=== PATIENT | female | born 1985 | race Caucasian/White ===

== ENCOUNTER 2018-12-26 17:29 | Emergency (ER) | payer OTHER, SELFPAY ==
[2018-12-26 17:37] VITALS: BP 139/99; PULSE 86; RESP 18; TEMP 36.9; O2SAT 100
[2018-12-26 18:53] LABS: Influenza A and B by PCR Rapid Negative (Negative)
--- NOTE | 2018-12-26 19:00 | ED_ITS ---
HPI - URI/Sore Throat <LLOYD Strickland - Last Filed: 12/26/18 22:01> General Chief Complaint: Upper Respiratory Symptoms Stated Complaint: HEAD PAIN, SORE THROAT Time Seen by Provider: 12/26/18 17:42 Source: patient Mode of arrival: ambulatory Limitations: no limitations History of Present Illness HPI Narrative: 33-year-old female with history of hypertension and hypothyroidism that is a nonsmoker here for concern of having sore throat and nasal congestion and cold-like symptoms on and off for the past few weeks. She states that she has had a resurgence of her symptoms starting earlier this week. She had a fever 3 days ago however she has not had a fever since then. She has had nasal congestion sinus discomfort and generalized body aches over this timeframe. She reports that her children have had similar symptoms as well. Positive p.o. intake. She reports she has had greenish nasal discharge as well. MD Complaint: sore throat, rhinorrhea, nasal congestion and sinus pain Related Data Home Medications Medication Instructions Recorded Confirmed labetalol 100 mg PO BID #0 11/27/17 12/26/18 sertraline [Zoloft] 50 mg PO HS #0 11/27/17 12/26/18 levothyroxine [Synthroid] 75 mcg PO DAILY 12/26/18 12/26/18 lisinopril 10 mg PO DAILY 12/26/18 12/26/18 Previous Rx's Medication Instructions Recorded amoxicillin-pot clavulanate 1 tab PO BID #20 tab 12/26/18 Allergies Allergy/AdvReac Type Severity Reaction Status Date / Time From [facility] Allergy Unknown HIVES Uncoded 12/26/18 17:43 Review of Systems <LLOYD Strickland - Last Filed: 12/26/18 22:01> Constitutional Denies chills, Reports fever(s), Denies lethargy and Denies weakness Eyes Denies change in vision, Denies eye discharge, Denies irritation and Denies loss of vision ENT Ears, Nose, Mouth, and Throat: Reports nasal congestion, Reports nasal discha rge, Reports sinus pain, Reports sinus pressure, Reports sore throat and Denies throat swelling Cardiovascular Denies chest pain, Denies irregular heart rhythm, Denies lightheadedness, Denies palpitations and Denies orthopnea Respiratory Reports cough and Denies wheezing Gastrointestinal Gastrointestinal: Denies abdominal pain, Denies change in bowel habits, Denies diarrhea, Denies nausea and Denies vomiting Genitourinary Denies hematuria, Denies flank pain, Denies urinary incontinence and Denies urinary urgency Musculoskeletal Denies back pain, Denies muscle weakness, Denies numbness and Denies tingling Integumentary/Breasts Denies pruritus, Denies erythema, Denies rash and Denies wounds Neurologic Denies confusion, Denies loss of vision, Denies numbness, Denies tingling and Denies weakness Psychiatric Denies anxiety, Denies confusion, Denies depression, Denies homicidal ideation and Denies suicidal ideation Endocrine Denies palpitations Hematologic/Lymphatic Denies easy bruising Allergic/Immunologic Denies urticaria, Denies throat swelling and Denies wheezing PFSH <LLOYD Strickland - Last Filed: 12/26/18 22:01> Medical History Hypothyroidism (Acute) Anxiety (Acute) Pre-eclampsia (Acute) Social History Smoking Status: Never smoker Social History Smoking Status: Never smoker Exam <LLOYD Strickland - Last Filed: 12/26/18 22:01> Initial Vital Signs Initial Vital Signs: Vital Signs Temperature 98.5 F 12/26/18 17:37 Pulse Rate 86 12/26/18 17:37 Respiratory Rate 18 12/26/18 17:37 Blood Pressure 139/99 H 12/26/18 17:37 Pulse Oximetry 100 12/26/18 17:37 Const General: cooperative and well developed Nutritional Appearance: well nourished Orientation: alert, awake, oriented x3 and not confused HENMT Ears: hearing grossly normal bilaterally, external ears normal and TM's normal bilaterally Face and sinus: sinus tenderness maxillary Mouth: oral mucosae normal and moist mucous membranes Throat: posterior oropharynx abnormal erythema Eyes Conjunctivae: conjunctivae normal Sclera: sclerae normal Pupils: PERRL EOM: EOM intact bilaterally Neck Neck: normal visual inspection, trachea midline, No lymphadenopathy, No midline deformity and No JVD Lymphatic: No lymphedema Resp Effort & Inspection: normal respiratory effort, able to speak in complete sentences, no respiratory distress and no use of accessory muscles Auscultation: clear to auscultation bilaterally, no rales, no rhonchi and no wheezes Cardio Rate: regular rate Rhythm: regular rhythm Heart Sounds: no click, no gallops, no murmurs and no rubs Pulses: normal peripheral pulses Skin General: no rashes or lesions noted, No jaundice and No petechiae Neuro General: alert, oriented x3, gait normal and no focal motor deficits Speech: speech normal <DO Abdoul Ervin Last Filed: 12/27/18 01:45> Initial Vital Signs Initial Vital Signs: Vital Signs Temperature 98.5 F 12/26/18 17:37 Pulse Rate 86 12/26/18 17:37 Respiratory Rate 18 12/26/18 17:37 Blood Pressure 139/99 H 12/26/18 17:37 Pulse Oximetry 100 12/26/18 17:37 Course <LLOYD Strickland - Last Filed: 12/26/18 22:01> Orders Ordered: ED Orders 12/26/18 18:29 Influenza A and B by PCR Rapid Stat Vital Signs - 8 hr 12/26/18 17:37 Temperature 98.5 F Pulse Rate 86 Respiratory Rate 18 Blood Pressure 139/99 H Pulse Oximetry 100 <DO Abdoul Ervin Last Filed: 12/27/18 01:45> Orders Ordered: ED Orders 12/26/18 18:29 Influenza A and B by PCR Rapid Stat Vital Signs - 8 hr 12/26/18 17:37 Temperature 98.5 F Pulse Rate 86 Respiratory Rate 18 Blood Pressure 139/99 H Pulse Oximetry 100 MDM - URI/Sore Throat <LLOYD Strickland - Last Filed: 12/26/18 22:01> Lab Data Lab Results 12/26/18 Range/Units 18:29 Influenza A & B (PCR) Negative (Negative) Point of Care Testing Rapid Strep A Positive MDM Narrative Medical decision making narrative: Influenza swab was obtained and was negative. Strep test was obtained and was positive. Will treat for sinusitis and also for strep throat with Augmentin. Plenty of fluids. Bawe-[id number]-ohllygn ibuprofen or Tylenol as needed for any discomfort and fever. Follow up with primary care provider. Return emergency room for any worsening symptoms. Saline irrigation and nasal passages and hot showers to help with congestion. <DO Abdoul Ervin Last Filed: 12/27/18 01:45> Lab Data Lab Results 12/26/18 Range/Units 18:29 Influenza A & B (PCR) Negative (Negative) Point of Care Testing Rapid Strep A Positive Discharge Plan Departure Patient Disposition: Home Clinical Impression: Acute streptococcal pharyngitis Sinusitis Qualifiers: Sinusitis location: maxillary Chronicity: acute Recurrence: non-recurrent Qualified Code(s): J01.00 - Acute maxillary sinusitis, unspecified Discharge Date/Time: 12/26/18 20:13 Interventions: ED Discharge Assessment Last Done: 12/26/18 20:12 Instructions: DI for Strep Throat Activity Restrictions/Additional Instructions: Influenza swab was obtained and was negative. Strep test was obtained and was positive. UR prescribed an antibiotic called Augmentin use as directed. The antibiotic will covefor r sinusitis and also for strep throat. Plenty of fluids. [id number] ibuprofen or Tylenol as needed for any discomfort and fever. Follow up with primary care provider. Return emergency room for any worsening symptoms. Saline irrigation and nasal passages and hot showers to help with congestion. Prescriptions: New amoxicillin-pot clavulanate 875-125 mg tablet 1 tab PO BID Qty: 20 RF: 0 No Action labetalol 100 MG tablet 100 mg PO BID Qty: 0 RF: 0 sertraline [Zoloft] 50 MG tablet 50 mg PO HS Qty: 0 RF: 0 levothyroxine [Synthroid] 75 mcg Tablet 75 mcg PO DAILY RF: 0 lisinopril 10 mg Tablet 10 mg PO DAILY RF: 0 Referrals: [facility] [Provider Group] <Mecca York DO - Last Filed: 12/27/18 01:45> Cosign ED Attending Cosignature Attestation: I was immediately available in the department for consultation. Documentation has been reviewed. I agree with assessment and plan.
== END 2018-12-26 20:13 | disposition home or self-care (01) ==
PROVIDERS: Emergency Provider Nurse Practitioner Family
DX: J02.0 Streptococcal pharyngitis (principal)
CPT/HCPCS: 87400; 87880; 99282; 99283

== ENCOUNTER 2019-02-09 13:20 | Emergency (ER) | payer OTHER, SELFPAY ==
[2019-02-09 13:24] VITALS: BP 148/98; PULSE 68; RESP 20; TEMP 36.7; O2SAT 99
--- NOTE | 2019-02-09 15:09 | ED.EYEPROB ---
HPI - Eye Problem <Marichuy Castellanos PA-C - Last Filed: 02/09/19 21:49> General Chief complaint: Eye Problems Stated complaint: SLICED INSIDE OF EYE W/ MASCARA WAND Time Seen by Provider: 02/09/19 15:03 Source: patient Mode of arrival: ambulatory Limitations: no limitations History of Present Illness HPI Narrative: This 33-year-old female states that she got bumped while starting to apply mascara and scraped or caught the edge of the Wand in her right eye. She states that she did not flush this but was tearing a lot. She still feels like there is something in her eye or a flap sensation and is sore. She states at times she feels like she can see little spots. She states it is hard for her to tell any change in her vision unless she compares the 2 eyes, then seems a little bit worse on the right. She denies any other complaints today. She states that she came in because she had a friend who did something similar and had significant eye problem due to not starting antibiotics Related Data Home Medications Medication Instructions Recorded Confirmed labetalol 100 mg PO BID #0 11/27/17 12/26/18 sertraline [Zoloft] 50 mg PO HS #0 11/27/17 12/26/18 levothyroxine [Synthroid] 75 mcg PO DAILY 12/26/18 12/26/18 lisinopril 10 mg PO DAILY 12/26/18 12/26/18 Previous Rx's Medication Instructions Recorded amoxicillin-pot clavulanate 1 tab PO BID #20 tab 12/26/18 erythromycin 0.5 inch EYE-RIGHT Q3-4H 5 Days 02/09/19 #3.5 gram Allergies Allergy/AdvReac Type Severity Reaction Status Date / Time From [facility] Allergy Unknown HIVES Uncoded 12/26/18 17:43 Review of Systems <Marichuy Castellanos PA-C - Last Filed: 02/09/19 21:49> Review of Systems ROS Unobtainable: All systems reviewed & are unremarkable except as noted in HPI and below PFSH <Marichuy Castellanos PA-C - Last Filed: 02/09/19 21:49> Medical History HTN (hypertension) (Chronic) Nephrolithiasis (Chronic) Hypothyroidism (Chronic) Pre-eclampsia (Chronic) Anxiety (Chronic) Surgical History H/O lymph node excision (Resolved) History of extraction of renal calculus (Resolved) Social History Smoking Status: Never smoker Social History Smoking Status: Never smoker Exam <Marichuy Castellanos PA-C - Last Filed: 02/09/19 21:49> Narrative Exam Narrative: General: Well-appearing patient is sitting comfortably HEENT: PERRL, EOMI, right eye no visible foreign body on the cornea/under the lids. Minimal conjunctival injection. On fluorescein stain she does have several small abrasions on either side of the iris. No other visible abnormality Initial Vital Signs Initial Vital Signs: Vital Signs Temperature 98.1 F 02/09/19 13:24 Pulse Rate 68 02/09/19 13:24 Respiratory Rate 20 02/09/19 13:24 Blood Pressure 148/98 H 02/09/19 13:24 Pulse Oximetry 99 02/09/19 13:24 <Mecca York DO - Last Filed: 02/10/19 07:55> Initial Vital Signs Initial Vital Signs: Vital Signs Temperature 98.1 F 02/09/19 13:24 Pulse Rate 68 02/09/19 13:24 Respiratory Rate 20 02/09/19 13:24 Blood Pressure 148/98 H 02/09/19 13:24 Pulse Oximetry 99 02/09/19 13:24 Course <Marichuy Castellanos PA-C - Last Filed: 02/09/19 21:49> Orders Ordered: Discontinued Medications Proparacaine HCl (Parcaine 0.5% Ophth Ronna) 1 drops EYE-RIGHT NOW ONE Stop: 02/09/19 15:21 Last Admin: 02/09/19 15:20 Dose: 1 drop Vital Signs - 8 hr 02/09/19 15:45 Pulse Rate 71 Respiratory Rate 17 Blood Pressure 123/84 Pulse Oximetry 100 <Mecca York DO - Last Filed: 02/10/19 07:55> Orders Ordered: Discontinued Medications Proparacaine HCl (Parcaine 0.5% Ophth Ronna) 1 drops EYE-RIGHT NOW ONE Stop: 02/09/19 15:21 Last Admin: 02/09/19 15:20 Dose: 1 drop Vital Signs - 8 hr 02/09/19 15:45 Pulse Rate 71 Respiratory Rate 17 Blood Pressure 123/84 Pulse Oximetry 100 Discharge Plan Departure Patient Disposition: Home Clinical Impression: Corneal abrasion Qualifiers: Encounter type: initial encounter Laterality: right Qualified Code(s): S05.01XA - Injury of conjunctiva and corneal abrasion without foreign body, right eye, initial encounter Discharge Date/Time: 02/09/19 15:45 Interventions: ED Discharge Assessment Last Done: 02/09/19 15:45 Instructions: DI for Corneal Abrasion Activity Restrictions/Additional Instructions: You should return to closest ED as we talked about if you have acutely worsening symptoms. You do have an abrasion on your cornea, likely due to the mascara brush. I do not see any pieces of mascara or other foreign body in the eye. I have prescribed antibiotic ointment for you to start (sent to [facility]), please use it every 3-4 hours this evening while you are awake as well as tomorrow, then you can change to 4 times daily for the next 3 days. Typically corneal abrasions start to improve within 24 hr under much better within a couple of days. If this is not starting to get better by tomorrow or you feel like our vision is not normal, please call our Opthamology group here (Dr. Vidal or one of his partners), and let them know that you were seen here in the emergency room and we wanted you to be seen for follow-up if not better. Prescriptions: New erythromycin 5 mg/gram (0.5 %) ointment 0.5 inch EYE-RIGHT Q3-4H 5 Days Qty: 3.5 RF: 0 No Action labetalol 100 MG tablet 100 mg PO BID Qty: 0 RF: 0 sertraline [Zoloft] 50 MG tablet 50 mg PO HS Qty: 0 RF: 0 levothyroxine [Synthroid] 75 mcg Tablet 75 mcg PO DAILY RF: 0 lisinopril 10 mg Tablet 10 mg PO DAILY RF: 0 amoxicillin-pot clavulanate 875-125 mg tablet 1 tab PO BID Qty: 20 RF: 0 Referrals: [facility] [Provider Group] Ethan Vidal MD [Physician] - <Mecca York DO - Last Filed: 02/10/19 07:55> Cosign ED Attending Cosignature Attestation: I was immediately available in the department for consultation. Documentation has been reviewed. I agree with assessment and plan.
[2019-02-09] MEDS: PROPARACAINE 0.5% OPHTH SOL 1 DROPS EYE-RIGHT (15:20)
[2019-02-09 15:45] VITALS: BP 123/84; PULSE 71; RESP 17; O2SAT 100
== END 2019-02-09 15:45 | disposition home or self-care (01) ==
PROVIDERS: Emergency Provider Internal Medicine
DX: S05.01XA Injury of conjunctiva and corneal abrasion without foreign body, right eye, initial encounter (principal)
CPT/HCPCS: 99282; 99283